=== PATIENT | female | born 1985 | race Caucasian/White ===

== ENCOUNTER → 2018-04-20 | Outpatient (CLI) | payer BC ==
[~2018-04-20] MED LIST: Colace100 MG PO; IBUP800 PO; LABE200 PO; OXYACE5T PO; PRENA1 PEARL S1 EACH PO; PROM25 PO
== END ==
LOC: LAB 11:30 → LAB SHORT 11:30
PROVIDERS: Nurse Practitioner Family
DX: Z01.419 Encounter for gynecological examination (general) (routine) without abnormal findings (principal)
CPT/HCPCS: G0145

== ENCOUNTER 2019-08-28 08:40 | Day surgery (SDC) | payer BC ==
[2019-08-30 14:56] LABS: Performing Lab SYMBIODX; Test Name HER2 FISH
[2019-09-08 11:37] LABS: Result SEE PATHOTH RESULTS
== END 2019-08-28 22:43 | disposition home or self-care (01) ==
LOC: MOI US 08:40
PROVIDERS: Nurse Practitioner Family
DX: C76.1 Malignant neoplasm of thorax (principal); Z17.0 Estrogen receptor positive status [ER+]
CPT/HCPCS: 38505; 76942; 88305; 88360; 88374

== ENCOUNTER → 2021-04-30 | Outpatient (CLI) | payer BC | LOC: LAB SHORT 17:42 → LAB 17:42 | PROVIDERS: Nurse Practitioner Family | DX: Z01.419 Encounter for gynecological examination (general) (routine) without abnormal findings (principal) | CPT/HCPCS: G0145 ==

== ENCOUNTER → 2022-10-01 | Outpatient (CLI) | payer BC ==
[2022-10-07 18:10] LABS: HPV 16 Negative (Negative); HPV 18 Negative (Negative); HPV OTHER HR TYPES Negative (Negative)
== END | disposition home or self-care (01) ==
LOC: LAB 15:28 → LAB SHORT 15:28
PROVIDERS: Obstetrics & Gynecology
DX: Z12.4 Encounter for screening for malignant neoplasm of cervix (principal)
CPT/HCPCS: 87624; G0123

== ENCOUNTER → 2023-12-07 | Outpatient (CLI) | payer BC | END | disposition home or self-care (01) | LOC: LAB 13:31 → LAB SHORT 13:31 | DX: N93.8 Other specified abnormal uterine and vaginal bleeding (principal) | CPT/HCPCS: 88305 ==